=== PATIENT | male | born 1940 | race African-American/Black ===

== ENCOUNTER 2016-08-18 10:03 | Emergency (ER) | payer OTHER ==
[~2016-08-18 10:03] MED LIST: Sodium Chloride 0.9% 1,000 ML BAG ONE
[2016-08-18 10:53] LABS: Bilirubin Negative (Negative); Blood, Urine Negative (Negative); Clarity Clear (Clear); Glucose, Urine (Dipstick) Negative (Negative); Leukocyte Negative (Negative); Nitrite Negative (Negative); Protein, Urine (Dipstick) Negative (Neg-Trace); Urobilinogen 0.2 mg/dL (0.2-1.0); pH, Urine 5.5 (5.0-9.0)
--- NOTE | 2016-08-18 11:04 | RAD ---
SINGLE VIEW OF THE CHEST: Comparison: 09-07-15 History: Chest pain. FINDINGS: Single view of the chest shows normal sized cardiomediastinal silhouette with atherosclerotic calcif ications in the aorta. There is no evidence of consolidation, mass, or pleural effusions. The bone s are unremarkable. IMPRESSION: 1. No evidence of acute cardiopulmonary disease. 2. Atherosclerotic disease. POS: [facility]
[2016-08-18 11:07] LABS: Bacteria/HPF Rare-Few HPF (None Seen); Other Microscopic Description C&S SET UP; RBC/HPF None Seen HPF (0-3); Squamous Epithelial 0-3 HPF (0-3); WBC/HPF None Seen HPF (0-3)
[2016-08-18 11:13] LABS: Anisocytosis SLIGHT = 6-15 cells (100X) (0-5/hpf); Elliptocytes SLIGHT = 2-5 cells (100X) (0-1/hpf); Eosinophils 2 % (0-10); Hemoglobin 14.9 g/dL (14.0-18.0); Lymphocytes 33 % (21-51); MDiff Complete? YES; Mean Corpuscular HGB CONC 31.1 g/dL (32.0-36.0); Mean Corpuscular Hemoglobin 26.2 pg (27.0-31.0); Mean Corpuscular Volume 84.1 fl (80.0-94.0); Mean Platelet Volume 6.7 fL (7.4-10.4); Monocytes 6 % (0-10); Neutrophil 59 % (42-75); Platelet Count 230 thou/uL (130-400); Poikilocytosis SLIGHT = 6-15 cells (100X) (0-5/hpf); RBC Distribution Width 14.7 % (11.5-14.5); Tear Drops SLIGHT = 2-5 cells (100X) (0-1/hpf); White Blood Cell (WBC) Count 5.3 thou/uL (4.8-10.8)
[2016-08-18 11:28] LABS: CRP (Inflammatory) Less than 0.50 mg/dL (= or < 0.5); Lipase 29 U/L (8-78)
[2016-08-18 11:35] LABS: ALT (SGPT) 13 U/L (0-55); AST (SGOT) 13 U/L (5-34); Albumin 3.9 g/dL (3.4-4.8); Alkaline Phosphatase 78 U/L (40-150); Anion Gap 12 mmol/L (10-20); BUN (Urea Nitrogen) 12 mg/dL (8.4-25.7); Bilirubin, Total 0.6 mg/dL (0.2-1.2); Calc. Creatinine Clearance 0 mL/min (70-130); Calcium 9.3 mg/dL (7.8-10.44); Carbon Dioxide 23 mmol/L (23-31); Chloride 108 mmol/L (98-107); Estimated GFR-MDRD 86; Globulin 2.8 g/dL (2.4-3.5); Glucose 115 mg/dL (83-110); Potassium 4.4 mmol/L (3.5-5.1); Protein, Total 6.7 g/dL (5.8-8.1); Sodium 139 mmol/L (136-145)
[2016-08-18 11:55] LABS: Amylase 125 U/L (20-160)
--- NOTE | 2016-08-18 13:48 | CT ---
CT OF THE ABDOMEN AND PELVIS WITHOUT CONTRAST: Date: 08/18/16 COMPARISON: None. HISTORY: Mid abdominal pain for 2 weeks with diarrhea. TECHNIQUE: Multiple contiguous axial images were obtained in a CT of the abdomen and pelvis without contrast. P O contrast was administered. Coronal reformats were performed. FINDINGS: There is a 3.2 cm hypodensity in the right kidney, most likely representing a cyst. There is a punct ate 1.0 mm nonobstructing calcification in the right kidney. No left renal abnormality is seen. The liver, gallbladder, adrenal glands, spleen, and pancreas are unremarkable, although evaluation is li mited without IV contrast. No free air, free fluid, or stranding changes are seen in the abdomen or pelvis. The large and small bowel are unremarkable. The appendix is not visualized. Atherosclerotic calcifications are seen in the aorta. No abdominal or pelvic lymphadenopathy seen. Degenerative changes are seen in the spine. The visualized inferior thorax and abdominal wall soft t issues are unremarkable. IMPRESSION: 1. Nonobstructing right renal calcification. 2. Right renal cyst. POS: [facility]
[2016-08-18] MEDS ORDERED: Ciprofloxacin 500 MG TAB ONE (14:40)
[2016-08-18] MEDS ORDERED: Naproxen 500 MG TAB ONE (14:40)
== END 2016-08-18 15:07 | disposition home or self-care (01) ==
LOC: MADERS 10:03
DX: K52.9 Noninfective gastroenteritis and colitis, unspecified (principal); E11.9 Type 2 diabetes mellitus without complications; I10 Essential (primary) hypertension; E78.00 Pure hypercholesterolemia, unspecified; Z79.82 Long term (current) use of aspirin; Z79.84 Long term (current) use of oral hypoglycemic drugs; Z79.899 Other long term (current) drug therapy
CPT/HCPCS: 36415; 71010; 74176; 80053; 81003; 81015; 82150; 82274; 83605; 83630; 83690; 83880; 85025; 86140; 87015; 87040; 87045; 87046; 87086; 87324; 87328; 87329; 87449; 87899; 96360; J7050

== ENCOUNTER 2016-08-26 09:57 | Emergency (ER) | payer OTHER, SELFPAY ==
[2016-08-26] MEDS ORDERED: Diphenoxylate HCl/Atropine Tablet ONE (12:02)
== END 2016-08-26 12:07 | disposition home or self-care (01) ==
LOC: MADERS 09:57
DX: K52.9 Noninfective gastroenteritis and colitis, unspecified (principal); E11.9 Type 2 diabetes mellitus without complications; I10 Essential (primary) hypertension; E78.00 Pure hypercholesterolemia, unspecified; Z79.82 Long term (current) use of aspirin; Z79.899 Other long term (current) drug therapy; Z79.2 Long term (current) use of antibiotics
CPT/HCPCS: 99283

== ENCOUNTER 2016-11-29 12:36 | Emergency (ER) | payer SELFPAY ==
[2016-11-29 13:17] LABS: #Basophils 0.1 thou/uL (0.0-0.2); #Eosinphils 0.2 thou/uL (0.0-0.7); #Lymphocytes 2.3 thou/uL (1.20-3.40); #Monocytes 0.6 thou/uL (0.11-0.59); #Neutrophils 3.7 thou/uL (1.40-6.50); %Basophils 1.3 % (0.0-1.0); %Eosinophils 2.7 % (0.0-10.0); %Lymphocytes 34.1 % (21.0-51.0); %Monocytes 8.6 % (0.0-10.0); %Neutrophils 53.3 % (42.0-75.0); Hemoglobin 14.4 g/dL (14.0-18.0); Mean Corpuscular HGB CONC 30.6 g/dL (32.0-36.0); Mean Corpuscular Hemoglobin 26.4 pg (27.0-31.0); Mean Corpuscular Volume 86.3 fl (80.0-94.0); Mean Platelet Volume 7.1 fL (7.4-10.4); Platelet Count 258 thou/uL (130-400); Red Blood Cell (RBC) Count 5.45 mill/uL (4.70-6.10); White Blood Cell (WBC) Count 6.9 thou/uL (4.8-10.8)
[2016-11-29 13:36] LABS: ALT (SGPT) 26 U/L (8-55); AST (SGOT) 15 U/L (5-34); Albumin 4.3 g/dL (3.4-4.8); Alkaline Phosphatase 84 U/L (40-150); Anion Gap 19 mmol/L (10-20); BUN (Urea Nitrogen) 17 mg/dL (8.4-25.7); Bilirubin, Total 0.6 mg/dL (0.2-1.2); Calc. Creatinine Clearance 0 mL/min (70-130); Carbon Dioxide 22 mmol/L (23-31); Chloride 106 mmol/L (98-107); Estimated GFR-MDRD 64; Globulin 3.6 g/dL (2.4-3.5); Glucose 82 mg/dL (83-110); Potassium 3.7 mmol/L (3.5-5.1); Protein, Total 7.9 g/dL (5.8-8.1); Sodium 143 mmol/L (136-145)
[2016-11-29 13:40] LABS: Clarity c (Clear); Leukocyte Negative (Negative); Nitrite Negative (Negative); Protein, Urine (Dipstick) Negative (Neg-Trace); pH, Urine 5.5 (5.0-9.0)
[2016-11-29 13:41] LABS: Bacteria/HPF Rare-Few HPF (None Seen); Bilirubin Negative (Negative); Blood, Urine Negative (Negative); Glucose, Urine (Dipstick) Negative (Negative); RBC/HPF 0-3 HPF (0-3); Squamous Epithelial 0-3 HPF (0-3); Urobilinogen 0.2 mg/dL (0.2-1.0); WBC/HPF 0-3 HPF (0-3)
[2016-11-29] MEDS ORDERED: Naproxen 500 MG TAB ONE (13:51)
[2016-11-29 14:07] LABS: Acetaminophen Less than 6.0 mcg/mL (10.0-30.0); Alcohol Less than 10 mg/dL (Less than 10); Salicylate Less than 8.0 mg/dL (15.0-30.0)
[2016-11-29 14:29] LABS: Amphetamine Not Detected (NotDetected); Barbiturates Screen Not Detected (NotDetected); Benzodiazepine Screen Not Detected (NotDetected); Cocaine Metabolite Screen Not Detected (NotDetected); Medtox Control Line Valid? VALID (VALID); Methadone Not Detected (NotDetected); Methamphetamine Not Detected (NotDetected); Opiate Screen Not Detected (NotDetected); Oxycodone Screen Not Detected (NotDetected); Phencyclidine (PCP) Not Detected (NotDetected); THC/Cannabinoid Screen Not Detected (NotDetected); Tricyclic Screen Not Detected (NotDetected)
== END 2016-11-29 15:16 | disposition home or self-care (01) ==
LOC: MADERS 12:36
DX: R51 Headache (principal); N40.0 Benign prostatic hyperplasia without lower urinary tract symptoms; E11.9 Type 2 diabetes mellitus without complications; E78.00 Pure hypercholesterolemia, unspecified; I10 Essential (primary) hypertension; Z79.82 Long term (current) use of aspirin; Z79.84 Long term (current) use of oral hypoglycemic drugs; Z79.899 Other long term (current) drug therapy
CPT/HCPCS: 36415; 80053; 80306; 80307; 81001; 84443; 85025; 87086; 99284

== ENCOUNTER 2017-02-04 20:40 | Emergency (ER) | payer SELFPAY ==
[2017-02-04] MEDS ORDERED: Ondansetron ODT 4 MG TAB ONE (21:29)
[2017-02-04] MEDS ORDERED: cloNIDine HCl 0.1 MG TAB ONE (21:29)
[2017-02-04 21:44] LABS: Clarity Hazy (Clear); Glucose, Urine (Dipstick) Negative (Negative); Leukocyte Negative (Negative); Nitrite Negative (Negative); Protein, Urine (Dipstick) 30 mg/dL (Neg-Trace); Specific Gravity, Urine 1.028 (1.002-1.036); Urobilinogen 0.2 mg/dL (0.2-1.0); pH, Urine 5.5 (5.0-9.0)
[2017-02-04 21:45] LABS: Bilirubin Small (Negative); Blood, Urine Negative (Negative); Icto Negative (Negative); RBC/HPF None Seen HPF (0-3); Squamous Epithelial 0-3 HPF (0-3); WBC/HPF None Seen HPF (0-3)
[2017-02-04 21:46] LABS: Crystals/HPF 3+ URIC ACID HPF (Negative)
[2017-02-04 21:51] LABS: #Basophils 0.1 thou/uL (0.0-0.2); #Eosinphils 0.1 thou/uL (0.0-0.7); #Lymphocytes 1.5 thou/uL (1.20-3.40); #Monocytes 0.5 thou/uL (0.11-0.59); #Neutrophils 4.4 thou/uL (1.40-6.50); %Basophils 1.1 % (0.0-1.0); %Eosinophils 1.4 % (0.0-10.0); %Lymphocytes 23.1 % (21.0-51.0); %Monocytes 7.9 % (0.0-10.0); %Neutrophils 66.6 % (42.0-75.0); Hemoglobin 13.9 g/dL (14.0-18.0); Mean Corpuscular HGB CONC 32.1 g/dL (32.0-36.0); Mean Corpuscular Volume 84.1 fl (80.0-94.0); Mean Platelet Volume 6.7 fL (7.4-10.4); Platelet Count 247 thou/uL (130-400); RBC Distribution Width 13.2 % (11.5-14.5); Red Blood Cell (RBC) Count 5.16 mill/uL (4.70-6.10); White Blood Cell (WBC) Count 6.5 thou/uL (4.8-10.8)
--- NOTE | 2017-02-04 22:00 | RAD ---
TWO VIEWS OF THE ABDOMEN AND UPRIGHT VIEW OF THE CHEST 02/04/17 HISTORY: Abdominal pain FINDINGS: Supine and upright views of the abdomen and upright view of the chest shows a nonspecific, nonobstru cted bowel gas pattern. No free air or air fluid levels are seen on upright examination. Air is seen in the rectum. The cardiomediastinal silhouette is normal in size. There is no evidence of consolidation, mass or p leural effusion. IMPRESSION: Unremarkable exam. POS: [facility]
--- NOTE | 2017-02-04 22:08 | CT ---
CT OF THE BRAIN WITHOUT CONTRAST 02/04/17 COMPARISON: 09/02/15 HISTORY: Altered mental status. Abdominal pain. TECHNIQUE: Multiple contiguous axial images were obtained in a CT of the brain without contrast. FINDINGS: There is scattered hypodensities in the subcortical and periventricular white matter, likely seconda ry to small vessel ischemic disease. No large confluent infarction is seen. There is no evidence of hydrocephalus, intracranial hemorrhage or extra-axial fluid collection. The calvarium and overlying soft tissues are unremarkable. The visualized paranasal sinuses and mast oid air cells are well aerated. IMPRESSION: No evidence of acute intracranial abnormality. POS: [facility]
[2017-02-04 22:13] LABS: CKMB 2.9 ng/mL (0-6.6); Troponin I 0.012 ng/mL (< 0.028)
[2017-02-04 22:17] LABS: ALT (SGPT) 42 U/L (8-55); AST (SGOT) 29 U/L (5-34); Albumin 3.9 g/dL (3.4-4.8); Alkaline Phosphatase 72 U/L (40-150); Anion Gap 15 mmol/L (10-20); BUN (Urea Nitrogen) 17 mg/dL (8.4-25.7); Bilirubin, Total 0.4 mg/dL (0.2-1.2); Calc. Creatinine Clearance 0 mL/min (70-130); Calcium 9.2 mg/dL (7.8-10.44); Carbon Dioxide 23 mmol/L (23-31); Chloride 107 mmol/L (98-107); Estimated GFR-MDRD 66; Glucose 107 mg/dL (83-110); Potassium 3.6 mmol/L (3.5-5.1); Protein, Total 6.9 g/dL (5.8-8.1); Sodium 141 mmol/L (136-145)
== END 2017-02-04 22:49 | disposition home or self-care (01) ==
LOC: MADERS 20:40
DX: E86.9 Volume depletion, unspecified (principal); I10 Essential (primary) hypertension; E11.9 Type 2 diabetes mellitus without complications; E78.00 Pure hypercholesterolemia, unspecified; Z79.84 Long term (current) use of oral hypoglycemic drugs; Z79.899 Other long term (current) drug therapy; Z79.82 Long term (current) use of aspirin; Z87.891 Personal history of nicotine dependence
CPT/HCPCS: 70450; 74022; 80053; 81003; 81015; 82553; 84484; 85025; 96360; J7050; Q0162

== ENCOUNTER 2017-03-04 23:32 | Emergency (ER) | payer MEDICARE, SELFPAY ==
[2017-03-05 00:05] LABS: #Basophils 0.2 thou/uL (0.0-0.2); #Lymphocytes 1.2 thou/uL (1.20-3.40); #Monocytes 1.2 thou/uL (0.11-0.59); #Neutrophils 9.2 thou/uL (1.40-6.50); %Basophils 1.3 % (0.0-1.0); %Lymphocytes 10.2 % (21.0-51.0); %Monocytes 10.3 % (0.0-10.0); %Neutrophils 78.2 % (42.0-75.0); Hemoglobin 13.8 g/dL (14.0-18.0); Mean Corpuscular HGB CONC 31.7 g/dL (32.0-36.0); Mean Corpuscular Hemoglobin 26.5 pg (27.0-31.0); Mean Corpuscular Volume 83.6 fl (80.0-94.0); Mean Platelet Volume 6.7 fL (7.4-10.4); Platelet Count 251 thou/uL (130-400); RBC Distribution Width 13.7 % (11.5-14.5); Red Blood Cell (RBC) Count 5.18 mill/uL (4.70-6.10); White Blood Cell (WBC) Count 11.7 thou/uL (4.8-10.8)
[2017-03-05 00:17] LABS: INR-International Normal Ratio 1.1
[2017-03-05 00:28] LABS: ALT (SGPT) 19 U/L (8-55); AST (SGOT) 13 U/L (5-34); Albumin 3.8 g/dL (3.4-4.8); Alkaline Phosphatase 62 U/L (40-150); Anion Gap 16 mmol/L (10-20); BUN (Urea Nitrogen) 19 mg/dL (8.4-25.7); Bilirubin, Total 0.9 mg/dL (0.2-1.2); Calc. Creatinine Clearance 0 mL/min (70-130); Calcium 9.6 mg/dL (7.8-10.44); Carbon Dioxide 25 mmol/L (23-31); Chloride 103 mmol/L (98-107); Estimated GFR-MDRD 58; Globulin 3.4 g/dL (2.4-3.5); Glucose 153 mg/dL (83-110); Potassium 3.5 mmol/L (3.5-5.1); Protein, Total 7.2 g/dL (5.8-8.1); Sodium 140 mmol/L (136-145)
[2017-03-05 00:29] LABS: CKMB 1.4 ng/mL (0-6.6); Troponin I 0.051 ng/mL (< 0.028)
[2017-03-05 00:33] LABS: Acetaminophen Less than 6.0 mcg/mL (10.0-30.0); Alcohol Less than 10 mg/dL (Less than 10); CK (CPK) 155 U/L (30-200); Magnesium 1.7 mg/dL (1.6-2.6); Salicylate Less than 8.0 mg/dL (15.0-30.0)
[2017-03-05 00:38] LABS: Hemoglobin A1c 6.2 % (4.0-6.0)
[2017-03-05 01:20] LABS: Clarity Clear (Clear)
[2017-03-05 01:21] LABS: Bilirubin Negative (Negative); Blood, Urine Negative (Negative); Glucose, Urine (Dipstick) Negative (Negative); Leukocyte Negative (Negative); Nitrite Negative (Negative); Protein, Urine (Dipstick) Negative (Neg-Trace); RBC/HPF None Seen HPF (0-3); Renal Epithelial None Seen HPF (0-3); Squamous Epithelial 0-3 HPF (0-3); Urobilinogen 0.2 mg/dL (0.2-1.0); WBC/HPF None Seen HPF (0-3)
[2017-03-05 01:26] LABS: Amphetamine Not Detected (NotDetected); Barbiturates Screen Not Detected (NotDetected); Benzodiazepine Screen Not Detected (NotDetected); Cocaine Metabolite Screen Not Detected (NotDetected); Medtox Control Line Valid? VALID (VALID); Methadone Not Detected (NotDetected); Methamphetamine Not Detected (NotDetected); Opiate Screen Not Detected (NotDetected); Oxycodone Screen Not Detected (NotDetected); Phencyclidine (PCP) Not Detected (NotDetected); THC/Cannabinoid Screen Not Detected (NotDetected); Tricyclic Screen Not Detected (NotDetected)
[2017-03-05] MEDS ORDERED: Aspirin 325 MG TAB ONE (01:59)
--- NOTE | 2017-03-05 08:49 | CT ---
PRELIMINARY REPORT/[facility]/EMERGENCY AFTER HOURS PROCEDURE: EXAM: CT Head Without Intravenous Contrast CLINICAL HISTORY: 77 years old, male; Signs and symptoms; Altered mental status/memory loss TECHNIQUE: Axial computed tomography images of the head/brain without intravenous contrast. COMPARISON: No relevant prior studies available. FINDINGS: Brain: Mild volume loss No hemorrhage. Moderate white matter disease. No edema. Ventricles: Unremarkable. No ventriculomegaly. Bones/joints: Unremarkable. No acute fracture. Soft tissues: Unremarkable. Sinuses: Unremarkable as visualized. No acute sinusitis. Mastoid air cells: Unremarkable as visualized. No mastoid effusion. IMPRESSION: No intracranial hemorrhage.Please see discussion above. Thank you for allowing us to participate in the care of your patient. Dictated and Authenticated by: Jett Qauch MD 03/05/2017 12:47 AM Central Time ([place] \T\ [place]) FINAL REPORT EMERGENCY AFTER HOURS STUDY CT BRAIN NONCONTRAST: HISTORY: 77-year-old male with generalized weakness and altered mental status. FINDINGS: There is no midline shift or any other mass effect. There is no evidence of acute intracranial hemo rrhage, large cortical infarct, obstructive hydrocephalus, or extraaxial fluid collection. The calv arium is intact. There is diffuse parenchymal volume loss. There are low attenuation areas in the white matter. These are nonspecific, but in a patient of this age, they are probably chronic ischem ic white matter changes due to microvascular atherosclerosis. There is no interval change since 02/16/17. This report agrees with the preliminary report by N[facility]. IMPRESSION: 1. No acute intracranial findings. 2. Involutional changes and chronic ischemic white matter changes. estela [] POS: [facility]
--- NOTE | 2017-03-05 08:57 | RAD ---
RADIOGRAPH CHEST 1 VIEW: HISTORY: 77-year-old male with altered mental status. FINDINGS: The thoracic aorta is tortuous and ectatic. There is no evidence of air space density, pneumothorax , or pulmonary edema. The lateral costophrenic angles are sharp. IMPRESSION: 1. No acute pulmonary findings. 2. Ectasia of thoracic aorta. estela [] POS: [facility]
== END 2017-03-05 02:21 | disposition short-term general hospital (02) ==
LOC: MADERS 23:32
DX: G30.9 Alzheimer's disease, unspecified (principal); F02.80 Dementia in other diseases classified elsewhere, unspecified severity, without behavioral disturbance, psychotic disturbance, mood disturbance, and anxiety; R79.89 Other specified abnormal findings of blood chemistry; E11.9 Type 2 diabetes mellitus without complications; E78.00 Pure hypercholesterolemia, unspecified; I10 Essential (primary) hypertension; F41.9 Anxiety disorder, unspecified; Z87.891 Personal history of nicotine dependence; Z79.899 Other long term (current) drug therapy; Z79.84 Long term (current) use of oral hypoglycemic drugs; Z79.82 Long term (current) use of aspirin
CPT/HCPCS: 36415; 51701; 70450; 71010; 80053; 80306; 80307; 81001; 82553; 83036; 83735; 83880; 84484; 85025; 85610; 85730; 86140; 87086; 93005

== ENCOUNTER 2017-03-08 16:46 | Inpatient (IN) | payer MEDICARE ==
[2017-03-08] MEDS ORDERED: FLU VACC TS2017-18 (>65YR) 0.5 ML SYRINGE IM ONE (18:00)
[2017-03-08] MEDS ORDERED: Ondansetron ODT 4 MG TAB PO PRN (18:00)
[2017-03-08] MEDS: Acetaminophen 325 MG TAB PO PRN (21:10)
[2017-03-08] MEDS: Colchicine 0.6 MG TAB PO SCH (21:10)
[2017-03-08] MEDS: Mirtazapine 15 MG TAB PO SCH (21:10)
[2017-03-08] MEDS: Indomethacin 25 mg Capsule PO SCH (21:11)
[2017-03-08] MEDS: Docusate 100 MG CAP PO SCH (21:11)
--- NOTE | 2017-03-09 06:19 | HP ---
PRIMARY CARE PHYSICIAN AND ADMITTING PHYSICIAN: Jenni Yuan M.D. REASON FOR ADMISSION: For swing bed skilled rehabilitation at [facility], status post altered mental status back at baseline and physical deconditioning. HISTORY OF PRESENT ILLNESS: Mr. Arriaga is a 77-year-old -[place] male who was transferred from [facility] in [place] to [facility] after his admission from 03/05-03/08. The patient was admitted initially due to altered mental status, generalized weakness and elevated troponins. The patient has a history of mild dementia and lives with his 17-year-old son in his home. Dr. Reed electricians top helper was consulted and he recommended no invasive intervention unless patient symptomatic with EKG changes. During hospitalization in [place], the patient was noted to have some form of sepsis, he had leukocytosis with elevated CRP, but that was ruled out. He had negative blood cultures and negative urine culture. The patient did have swelling and pain to his right knee and synovial fluid in his knee was present for urate crystals. The patient was subsequently diagnosed with acute gout attack. He was started on colchicine and indomethacin and antibiotics were discontinued as he was found not to be septic. The patient's mental status returned somewhat to baseline with waxing and waning episodes, but due to his advancing dementia, it was discussed with family and patient will likely need a long-term placement. After discussion with family, the decision was made to transfer the patient to [facility] swing bed for skilled rehabilitation before his discharge to a long-term facility or back to home. Upon evaluation of patient today, he was alert, awake and oriented x2. He was very weak to his extremities but kept attempting to get up on his own. He denies any pain in the knee, but complains of some swelling and weakness. The patient denies any fever, denies chest pain, shortness of breath, abdominal pain or dizziness. The patient was able to eat his own dinner by himself without any issues. PAST MEDICAL HISTORY: Type 2 diabetes, hypertension, hyperlipidemia, dementia and benign prostatic hypertrophy. PAST SURGICAL HISTORY: Prostatectomy and TURP procedure. ALLERGIES: IODINE. MEDICATIONS: Aspirin 81 mg, omeprazole 20 daily, hydrochlorothiazide 25 daily, mirtazapine 30 mg at bedtime, potassium chloride 20 daily, amlodipine 10 daily, atorvastatin 40 daily, metoprolol 50 b.i.d., metformin 500 daily, glyburide 1 daily, prazosin 1 mg at bedtime and clonidine q.8 hours p.r.n. SOCIAL HISTORY: History of tobacco abuse over 10 years ago. Denies illicit drug use or alcohol use. REVIEW OF SYSTEMS: Constitutional: Denies fever, chills or weight loss. Eyes : Denies vision changes or eye pain. Respiratory: Denies cough or congestion. Cardiovascular: Denies shortness of breath, palpitation or chest pain. Gastrointestinal: Denies nausea, vomiting, diarrhea or constipation. Genitourinary: Denies incontinence, dysuria or hematuria. Skin: Denies any skin rashes or lesions. Musculoskeletal: Complains of occasional pain to the right knee and weakness. Neurological: Complains of weakness. Denies numbness. Psychiatry: Denies hallucination, delusion or anxiety. PHYSICAL EXAMINATION: VITAL SIGNS: Temperature 98.0, pulse 68, respirations 20 and blood pressure 161 /77. GENERAL: Alert, awake, oriented x2, in no apparent distress, thin, sitting up in bed and interactive. HEENT: Normocephalic and atraumatic. PERRL. Anicteric sclerae. Oral mucous membranes are moist. NECK: Supple. No lymphadenopathy or thyromegaly. CARDIOVASCULAR: Regular rate and rhythm. No murmurs, rubs or gallops. RESPIRATORY: Clear to auscultation bilaterally. No wheezing, no crackles. SKIN: Warm and dry. ABDOMEN: Positive bowel sounds in all four quadrants. Soft and nontender to palpation. No masses, no distention. EXTREMITIES: No clubbing or cyanosis. MUSCULOSKELETAL: Right knee mildly swollen, nontender and nonerythematous. NEUROLOGIC: No focal deficits. PSYCHIATRIC: Some form of confusion. ASSESSMENT: 1. Physical deconditioning. 2. Gait instability. 3. Advancing dementia. 4. Hypertension. 5. Type 2 diabetes. 6. Benign prostatic hypertrophy. 7. Hyperlipidemia. 8. Acute gout attack. 9. Acute on chronic kidney injury. 10. Benign prostatic hypertrophy. 11. Elevated troponins. PLAN: The patient is to be admitted to [facility] swing bed for skilled rehabilitation and gait strengthening. We will consult Physical Therapy for strengthening in order to gain modified independence with gait and Occupational Therapy to help with activities of daily living prior to returning either to his home or a long-term facility. We will consult Speech Therapy to help with his speech. We will consult Case Management for long-term placement. We will resume patient's home medications. We will continue his acute gout medications. We will place him on Colace b.i.d. for constipation. We will monitor the patient for any medical comorbidities that may interfere with his rehabilitation process. We will place patient on omeprazole for gastrointestinal prophylaxis and ANGE hose for deep venous thrombosis prophylaxis. ESTIMATED LENGTH OF STAY: 3-4 weeks. MTDD
[2017-03-09] MEDS: Atorvastatin Calcium 10 MG TAB PO SCH (08:24)
[2017-03-09] MEDS: glyBURIDE 5 MG TAB PO SCH (08:24)
[2017-03-09] MEDS: Aspirin 81 mg Enteric Coated Tablet PO SCH (08:24)
[2017-03-09] MEDS: metFORMIN 500 MG TAB PO SCH (08:25)
[2017-03-09] MEDS: Colchicine 0.6 MG TAB PO SCH ×2 (08:25→20:54)
[2017-03-09] MEDS: Docusate 100 MG CAP PO SCH ×2 (08:25→20:54)
[2017-03-09] MEDS: Indomethacin 25 mg Capsule PO SCH ×3 (08:25→20:55)
[2017-03-09] MEDS: Hydrochlorothiazide 25 MG TAB PO SCH (08:25)
[2017-03-09] MEDS: Potassium Chloride 20 MEQ TAB PO SCH (08:26)
[2017-03-09] MEDS: Prazosin HCl 1 MG CAP PO SCH (08:26)
[2017-03-09] MEDS ORDERED: Polyethylene Glycol 3350 17 GM Packet PO PRN (14:03)
[2017-03-09] MEDS: Mirtazapine 15 MG TAB PO SCH (20:56)
[2017-03-09] MEDS: Acetaminophen 325 MG TAB PO PRN (23:57)
[2017-03-10] MEDS: Potassium Chloride 20 MEQ TAB PO SCH (08:36)
[2017-03-10] MEDS: Prazosin HCl 1 MG CAP PO SCH (08:36)
[2017-03-10] MEDS: Colchicine 0.6 MG TAB PO SCH (08:36)
[2017-03-10] MEDS: metFORMIN 500 MG TAB PO SCH (08:36)
[2017-03-10] MEDS: Indomethacin 25 mg Capsule PO SCH ×3 (08:36→20:18)
[2017-03-10] MEDS: Hydrochlorothiazide 25 MG TAB PO SCH (08:37)
[2017-03-10] MEDS: Atorvastatin Calcium 10 MG TAB PO SCH (08:37)
[2017-03-10] MEDS: glyBURIDE 5 MG TAB PO SCH (08:37)
[2017-03-10] MEDS: Aspirin 81 mg Enteric Coated Tablet PO SCH (08:37)
[2017-03-10] MEDS: Docusate 100 MG CAP PO SCH (08:37)
[2017-03-10] MEDS ORDERED: Loperamide HCl 2 MG CAP PO PRN (09:30)
[2017-03-10] MEDS: Mirtazapine 15 MG TAB PO SCH (20:19)
[2017-03-11] MEDS: glyBURIDE 5 MG TAB PO SCH (08:32)
[2017-03-11] MEDS: Aspirin 81 mg Enteric Coated Tablet PO SCH (08:32)
[2017-03-11] MEDS: Atorvastatin Calcium 10 MG TAB PO SCH (08:33)
[2017-03-11] MEDS: Hydrochlorothiazide 25 MG TAB PO SCH (08:33)
[2017-03-11] MEDS: metFORMIN 500 MG TAB PO SCH (08:33)
[2017-03-11] MEDS: Indomethacin 25 mg Capsule PO SCH ×3 (08:33→20:06)
[2017-03-11] MEDS: Prazosin HCl 1 MG CAP PO SCH (08:34)
[2017-03-11] MEDS: Potassium Chloride 20 MEQ TAB PO SCH (08:34)
[2017-03-11] MEDS: Pantoprazole 40 MG GRANULES PACKET PO SCH (14:39)
[2017-03-11] MEDS: Acetaminophen 325 MG TAB PO PRN ×2 (19:10→23:54)
[2017-03-11] MEDS: Mirtazapine 15 MG TAB PO SCH (20:07)
[2017-03-12] MEDS: Indomethacin 25 mg Capsule PO SCH ×3 (08:07→20:25)
[2017-03-12] MEDS: glyBURIDE 5 MG TAB PO SCH (08:08)
[2017-03-12] MEDS: Potassium Chloride 20 MEQ TAB PO SCH (08:08)
[2017-03-12] MEDS: metFORMIN 500 MG TAB PO SCH (08:08)
[2017-03-12] MEDS: Prazosin HCl 1 MG CAP PO SCH (08:08)
[2017-03-12] MEDS: Hydrochlorothiazide 25 MG TAB PO SCH (08:08)
[2017-03-12] MEDS: Aspirin 81 mg Enteric Coated Tablet PO SCH (08:08)
[2017-03-12] MEDS: Atorvastatin Calcium 10 MG TAB PO SCH (08:08)
[2017-03-12] MEDS: Pantoprazole 40 MG GRANULES PACKET PO SCH (08:09)
[2017-03-12] MEDS: Mirtazapine 15 MG TAB PO SCH (20:26)
[2017-03-13] MEDS: Aspirin 81 mg Enteric Coated Tablet PO SCH (08:31)
[2017-03-13] MEDS: Hydrochlorothiazide 25 MG TAB PO SCH (08:31)
[2017-03-13] MEDS: Colchicine 0.6 MG TAB PO SCH ×2 (08:31→14:20)
[2017-03-13] MEDS: glyBURIDE 5 MG TAB PO SCH (08:31)
[2017-03-13] MEDS: Atorvastatin Calcium 10 MG TAB PO SCH (08:31)
[2017-03-13] MEDS: Potassium Chloride 20 MEQ TAB PO SCH (08:32)
[2017-03-13] MEDS: Prazosin HCl 1 MG CAP PO SCH (08:32)
[2017-03-13] MEDS: metFORMIN 500 MG TAB PO SCH (08:32)
[2017-03-13] MEDS: Indomethacin 25 mg Capsule PO SCH ×3 (08:32→21:02)
[2017-03-13] MEDS: Pantoprazole 40 MG GRANULES PACKET PO SCH (08:32)
[2017-03-13] MEDS: Lisinopril 10 MG TAB PO SCH (14:22)
[2017-03-13] MEDS: Mirtazapine 15 MG TAB PO SCH (21:03)
[2017-03-13] MEDS ORDERED: clonazePAM 0.5 MG TAB PO SCH (22:45)
[2017-03-14] MEDS: glyBURIDE 5 MG TAB PO SCH (07:32)
[2017-03-14] MEDS: Pantoprazole 40 MG GRANULES PACKET PO SCH (08:29)
[2017-03-14] MEDS: Indomethacin 25 mg Capsule PO SCH ×2 (08:29→21:15)
[2017-03-14] MEDS: Lisinopril 10 MG TAB PO SCH (08:29)
[2017-03-14] MEDS: Aspirin 81 mg Enteric Coated Tablet PO SCH (08:29)
[2017-03-14] MEDS: Potassium Chloride 20 MEQ TAB PO SCH (08:30)
[2017-03-14] MEDS: Hydrochlorothiazide 25 MG TAB PO SCH (08:30)
[2017-03-14] MEDS: Prazosin HCl 1 MG CAP PO SCH (08:30)
[2017-03-14] MEDS: metFORMIN 500 MG TAB PO SCH (08:30)
[2017-03-14] MEDS: Colchicine 0.6 MG TAB PO SCH (08:30)
[2017-03-14] MEDS: Atorvastatin Calcium 10 MG TAB PO SCH (08:31)
[2017-03-14] MEDS: Mirtazapine 15 MG TAB PO SCH (21:14)
[2017-03-15] MEDS: glyBURIDE 5 MG TAB PO SCH (07:58)
[2017-03-15] MEDS: Indomethacin 25 mg Capsule PO SCH ×2 (08:57→20:13)
[2017-03-15] MEDS: Atorvastatin Calcium 10 MG TAB PO SCH (08:57)
[2017-03-15] MEDS: Hydrochlorothiazide 25 MG TAB PO SCH (08:58)
[2017-03-15] MEDS: Lisinopril 10 MG TAB PO SCH (08:58)
[2017-03-15] MEDS: Prazosin HCl 1 MG CAP PO SCH (08:58)
[2017-03-15] MEDS: Aspirin 81 mg Enteric Coated Tablet PO SCH (08:58)
[2017-03-15] MEDS: Potassium Chloride 20 MEQ TAB PO SCH (08:58)
[2017-03-15] MEDS: Pantoprazole 40 MG GRANULES PACKET PO SCH (08:59)
[2017-03-15] MEDS: metFORMIN 500 MG TAB PO SCH (08:59)
[2017-03-15] MEDS: Colchicine 0.6 MG TAB PO SCH (08:59)
[2017-03-15] MEDS: Mirtazapine 15 MG TAB PO SCH (20:13)
[2017-03-15] MEDS ORDERED: Dorzolamide HCl 2% Ophth Soln 10 ml Bottle L EYE SCH (21:00)
[2017-03-15] MEDS ORDERED: Dorzolamide HCl 2% Ophth Soln 10 ml Bottle R EYE SCH ×2 (21:00)
[2017-03-16] MEDS: Aspirin 81 mg Enteric Coated Tablet PO SCH (08:02)
[2017-03-16] MEDS: Atorvastatin Calcium 10 MG TAB PO SCH (08:02)
[2017-03-16] MEDS: glyBURIDE 5 MG TAB PO SCH (08:02)
[2017-03-16] MEDS: Prazosin HCl 1 MG CAP PO SCH (08:03)
[2017-03-16] MEDS: Lisinopril 10 MG TAB PO SCH (08:03)
[2017-03-16] MEDS: metFORMIN 500 MG TAB PO SCH (08:03)
[2017-03-16] MEDS: Hydrochlorothiazide 25 MG TAB PO SCH (08:03)
[2017-03-16] MEDS: Indomethacin 25 mg Capsule PO SCH ×2 (08:04→19:58)
[2017-03-16] MEDS: Potassium Chloride 20 MEQ TAB PO SCH (08:04)
[2017-03-16] MEDS: Colchicine 0.6 MG TAB PO SCH (08:04)
[2017-03-16] MEDS: Pantoprazole 40 MG GRANULES PACKET PO SCH (08:39)
[2017-03-16] MEDS: Dorzolamide HCl 2% Ophth Soln 10 ml Bottle EA EYE SCH ×2 (08:39→20:00)
[2017-03-16] MEDS: Mirtazapine 15 MG TAB PO SCH (19:59)
[2017-03-16] MEDS: clonazePAM 0.5 MG TAB PO PRN (20:00)
[2017-03-17] MEDS: glyBURIDE 5 MG TAB PO SCH (08:25)
[2017-03-17] MEDS: Aspirin 81 mg Enteric Coated Tablet PO SCH (08:26)
[2017-03-17] MEDS: Indomethacin 25 mg Capsule PO SCH ×2 (08:26→20:15)
[2017-03-17] MEDS: Hydrochlorothiazide 25 MG TAB PO SCH (08:26)
[2017-03-17] MEDS: Dorzolamide HCl 2% Ophth Soln 10 ml Bottle EA EYE SCH ×2 (08:26→20:14)
[2017-03-17] MEDS: Atorvastatin Calcium 10 MG TAB PO SCH (08:26)
[2017-03-17] MEDS: Colchicine 0.6 MG TAB PO SCH (08:26)
[2017-03-17] MEDS: metFORMIN 500 MG TAB PO SCH (08:27)
[2017-03-17] MEDS: Prazosin HCl 1 MG CAP PO SCH (08:27)
[2017-03-17] MEDS: Lisinopril 10 MG TAB PO SCH (08:27)
[2017-03-17] MEDS: Potassium Chloride 20 MEQ TAB PO SCH (08:27)
[2017-03-17] MEDS: Mirtazapine 15 MG TAB PO SCH (20:15)
[2017-03-18] MEDS: Aspirin 81 mg Enteric Coated Tablet PO SCH (08:01)
[2017-03-18] MEDS: glyBURIDE 5 MG TAB PO SCH (08:01)
[2017-03-18] MEDS: Atorvastatin Calcium 10 MG TAB PO SCH (08:02)
[2017-03-18] MEDS: metFORMIN 500 MG TAB PO SCH (08:03)
[2017-03-18] MEDS: Hydrochlorothiazide 25 MG TAB PO SCH (08:03)
[2017-03-18] MEDS: Indomethacin 25 mg Capsule PO SCH ×3 (08:03→19:44)
[2017-03-18] MEDS: Prazosin HCl 1 MG CAP PO SCH (08:03)
[2017-03-18] MEDS: Colchicine 0.6 MG TAB PO SCH (08:03)
[2017-03-18] MEDS: Potassium Chloride 20 MEQ TAB PO SCH (08:03)
[2017-03-18] MEDS: Lisinopril 10 MG TAB PO SCH (08:30)
[2017-03-18] MEDS: Dorzolamide HCl 2% Ophth Soln 10 ml Bottle EA EYE SCH ×2 (08:30→19:45)
[2017-03-18] MEDS: Mirtazapine 15 MG TAB PO SCH (19:42)
[2017-03-18] MEDS: clonazePAM 0.5 MG TAB PO PRN (19:43)
[2017-03-19] MEDS: Atorvastatin Calcium 10 MG TAB PO SCH (08:17)
[2017-03-19] MEDS: Hydrochlorothiazide 25 MG TAB PO SCH (08:17)
[2017-03-19] MEDS: Colchicine 0.6 MG TAB PO SCH (08:17)
[2017-03-19] MEDS: glyBURIDE 5 MG TAB PO SCH (08:17)
[2017-03-19] MEDS: Aspirin 81 mg Enteric Coated Tablet PO SCH (08:17)
[2017-03-19] MEDS: metFORMIN 500 MG TAB PO SCH (08:18)
[2017-03-19] MEDS: Lisinopril 10 MG TAB PO SCH (08:18)
[2017-03-19] MEDS: Prazosin HCl 1 MG CAP PO SCH (08:18)
[2017-03-19] MEDS: Potassium Chloride 20 MEQ TAB PO SCH (08:18)
[2017-03-19] MEDS: Dorzolamide HCl 2% Ophth Soln 10 ml Bottle EA EYE SCH ×2 (08:21→19:58)
[2017-03-19] MEDS ORDERED: Indomethacin 25 mg Capsule PO SCH (08:45)
[2017-03-19] MEDS ORDERED: Dextrose 5% in Water 1,000 ML IV PRN (11:42)
[2017-03-19] MEDS ORDERED: Dextrose 50% Abboject 50 ML SYRINGE SLOW IVP PRN (11:42)
[2017-03-19] MEDS: Indomethacin 25 mg Capsule PO SCH (19:59)
[2017-03-19] MEDS: Mirtazapine 15 MG TAB PO SCH (20:00)
[2017-03-19] MEDS: clonazePAM 0.5 MG TAB PO PRN (20:00)
[2017-03-20] MEDS: glyBURIDE 5 MG TAB PO SCH (08:02)
[2017-03-20] MEDS: Atorvastatin Calcium 10 MG TAB PO SCH (08:02)
[2017-03-20] MEDS: Indomethacin 25 mg Capsule PO SCH ×2 (08:03→20:21)
[2017-03-20] MEDS: Prazosin HCl 1 MG CAP PO SCH (08:03)
[2017-03-20] MEDS: Hydrochlorothiazide 25 MG TAB PO SCH (08:03)
[2017-03-20] MEDS: metFORMIN 500 MG TAB PO SCH (08:04)
[2017-03-20] MEDS: Potassium Chloride 20 MEQ TAB PO SCH (08:04)
[2017-03-20] MEDS: Aspirin 81 mg Enteric Coated Tablet PO SCH (08:04)
[2017-03-20] MEDS: Colchicine 0.6 MG TAB PO SCH (08:04)
[2017-03-20] MEDS: Dorzolamide HCl 2% Ophth Soln 10 ml Bottle EA EYE SCH ×2 (08:06→20:21)
[2017-03-20] MEDS: Lisinopril 10 MG TAB PO SCH (08:33)
[2017-03-20] MEDS: clonazePAM 0.5 MG TAB PO PRN (20:21)
[2017-03-20] MEDS: Mirtazapine 15 MG TAB PO SCH (20:21)
[2017-03-21] MEDS: Atorvastatin Calcium 10 MG TAB PO SCH (08:07)
[2017-03-21] MEDS: Aspirin 81 mg Enteric Coated Tablet PO SCH (08:07)
[2017-03-21] MEDS: glyBURIDE 5 MG TAB PO SCH (08:07)
[2017-03-21] MEDS: Lisinopril 10 MG TAB PO SCH (08:08)
[2017-03-21] MEDS: Indomethacin 25 mg Capsule PO SCH ×2 (08:08→21:10)
[2017-03-21] MEDS: Hydrochlorothiazide 25 MG TAB PO SCH (08:08)
[2017-03-21] MEDS: Colchicine 0.6 MG TAB PO SCH (08:08)
[2017-03-21] MEDS: Prazosin HCl 1 MG CAP PO SCH (08:09)
[2017-03-21] MEDS: metFORMIN 500 MG TAB PO SCH (08:09)
[2017-03-21] MEDS: Potassium Chloride 20 MEQ TAB PO SCH (08:09)
[2017-03-21] MEDS: Dorzolamide HCl 2% Ophth Soln 10 ml Bottle EA EYE SCH ×2 (08:44→21:11)
[2017-03-21] MEDS: clonazePAM 0.5 MG TAB PO PRN (21:10)
[2017-03-22] MEDS: glyBURIDE 5 MG TAB PO SCH (07:41)
[2017-03-22] MEDS: Lisinopril 10 MG TAB PO SCH ×2 (07:41→20:23)
[2017-03-22] MEDS: Hydrochlorothiazide 25 MG TAB PO SCH (07:41)
[2017-03-22] MEDS: Prazosin HCl 1 MG CAP PO SCH (08:52)
[2017-03-22] MEDS: Potassium Chloride 20 MEQ TAB PO SCH (08:52)
[2017-03-22] MEDS: Aspirin 81 mg Enteric Coated Tablet PO SCH (08:52)
[2017-03-22] MEDS: Indomethacin 25 mg Capsule PO SCH (08:52)
[2017-03-22] MEDS: Colchicine 0.6 MG TAB PO SCH (08:52)
[2017-03-22] MEDS: metFORMIN 500 MG TAB PO SCH (08:52)
[2017-03-22] MEDS: Atorvastatin Calcium 10 MG TAB PO SCH (08:52)
[2017-03-22] MEDS: Dorzolamide HCl 2% Ophth Soln 10 ml Bottle EA EYE SCH ×2 (08:53→20:24)
[2017-03-22] MEDS: clonazePAM 0.5 MG TAB PO PRN ×2 (15:06→20:22)
[2017-03-22] MEDS ORDERED: Indomethacin 25 mg Capsule PO SCH (18:00)
[2017-03-22 18:30] VITALS: BMI 25.4
[2017-03-22] MEDS: Mirtazapine 15 MG TAB PO SCH (20:23)
[2017-03-22] MEDS: Donepezil HCl 10 MG TAB PO SCH (20:24)
[2017-03-23] MEDS: glyBURIDE 5 MG TAB PO SCH (07:19)
[2017-03-23] MEDS: Hydrochlorothiazide 25 MG TAB PO SCH (08:27)
[2017-03-23] MEDS: Prazosin HCl 1 MG CAP PO SCH (08:27)
[2017-03-23] MEDS: Colchicine 0.6 MG TAB PO SCH (08:27)
[2017-03-23] MEDS: Aspirin 81 mg Enteric Coated Tablet PO SCH (08:28)
[2017-03-23] MEDS: Lisinopril 10 MG TAB PO SCH ×2 (08:28→21:02)
[2017-03-23] MEDS: Potassium Chloride 20 MEQ TAB PO SCH (08:28)
[2017-03-23] MEDS: Atorvastatin Calcium 10 MG TAB PO SCH (08:29)
[2017-03-23] MEDS: metFORMIN 500 MG TAB PO SCH (08:29)
[2017-03-23] MEDS: Dorzolamide HCl 2% Ophth Soln 10 ml Bottle EA EYE SCH ×2 (08:29→20:51)
[2017-03-23] MEDS: Donepezil HCl 10 MG TAB PO SCH (20:50)
[2017-03-23] MEDS: Mirtazapine 15 MG TAB PO SCH (20:57)
[2017-03-23] MEDS: Acetaminophen 325 MG TAB PO PRN (21:07)
[2017-03-24] MEDS: glyBURIDE 5 MG TAB PO SCH (08:05)
[2017-03-24] MEDS: Prazosin HCl 1 MG CAP PO SCH (08:40)
[2017-03-24] MEDS: Atorvastatin Calcium 10 MG TAB PO SCH (08:40)
[2017-03-24] MEDS: metFORMIN 500 MG TAB PO SCH (08:40)
[2017-03-24] MEDS: Hydrochlorothiazide 25 MG TAB PO SCH (08:40)
[2017-03-24] MEDS: Potassium Chloride 20 MEQ TAB PO SCH (08:41)
[2017-03-24] MEDS: Aspirin 81 mg Enteric Coated Tablet PO SCH (08:41)
[2017-03-24] MEDS: Colchicine 0.6 MG TAB PO SCH (08:41)
[2017-03-24] MEDS: Lisinopril 10 MG TAB PO SCH ×2 (08:41→20:41)
[2017-03-24] MEDS: Dorzolamide HCl 2% Ophth Soln 10 ml Bottle EA EYE SCH ×2 (08:45→20:40)
[2017-03-24] MEDS: Donepezil HCl 10 MG TAB PO SCH (20:40)
[2017-03-24] MEDS: Mirtazapine 15 MG TAB PO SCH (20:41)
[2017-03-24] MEDS: Acetaminophen 325 MG TAB PO PRN (20:42)
[2017-03-25] MEDS: Prazosin HCl 1 MG CAP PO SCH (07:43)
[2017-03-25] MEDS: Lisinopril 10 MG TAB PO SCH ×2 (07:44→20:34)
[2017-03-25] MEDS: glyBURIDE 5 MG TAB PO SCH (07:45)
[2017-03-25] MEDS: Hydrochlorothiazide 25 MG TAB PO SCH (07:45)
[2017-03-25] MEDS: Atorvastatin Calcium 10 MG TAB PO SCH (08:36)
[2017-03-25] MEDS: Potassium Chloride 20 MEQ TAB PO SCH (08:36)
[2017-03-25] MEDS: metFORMIN 500 MG TAB PO SCH (08:36)
[2017-03-25] MEDS: Aspirin 81 mg Enteric Coated Tablet PO SCH (08:36)
[2017-03-25] MEDS: Colchicine 0.6 MG TAB PO SCH (08:36)
[2017-03-25] MEDS: Dorzolamide HCl 2% Ophth Soln 10 ml Bottle EA EYE SCH ×2 (08:37→20:26)
[2017-03-25] MEDS: Mirtazapine 15 MG TAB PO SCH (20:27)
[2017-03-25] MEDS: Donepezil HCl 10 MG TAB PO SCH (20:27)
[2017-03-25] MEDS: clonazePAM 0.5 MG TAB PO PRN (20:32)
[2017-03-26] MEDS: glyBURIDE 5 MG TAB PO SCH (08:21)
[2017-03-26] MEDS: Aspirin 81 mg Enteric Coated Tablet PO SCH (08:22)
[2017-03-26] MEDS: Prazosin HCl 1 MG CAP PO SCH (08:22)
[2017-03-26] MEDS: metFORMIN 500 MG TAB PO SCH (08:22)
[2017-03-26] MEDS: Atorvastatin Calcium 10 MG TAB PO SCH (08:22)
[2017-03-26] MEDS: Hydrochlorothiazide 25 MG TAB PO SCH (08:22)
[2017-03-26] MEDS: Potassium Chloride 20 MEQ TAB PO SCH (08:23)
[2017-03-26] MEDS: Lisinopril 10 MG TAB PO SCH ×2 (08:23→20:13)
[2017-03-26] MEDS: Colchicine 0.6 MG TAB PO SCH (08:23)
[2017-03-26] MEDS: Dorzolamide HCl 2% Ophth Soln 10 ml Bottle EA EYE SCH ×2 (08:23→20:14)
[2017-03-26] MEDS: Donepezil HCl 10 MG TAB PO SCH (20:13)
[2017-03-26] MEDS: Mirtazapine 15 MG TAB PO SCH (20:13)
[2017-03-27] MEDS: glyBURIDE 5 MG TAB PO SCH (07:39)
[2017-03-27] MEDS: Colchicine 0.6 MG TAB PO SCH (08:31)
[2017-03-27] MEDS: metFORMIN 500 MG TAB PO SCH (08:31)
[2017-03-27] MEDS: Hydrochlorothiazide 25 MG TAB PO SCH (08:31)
[2017-03-27] MEDS: Prazosin HCl 1 MG CAP PO SCH (08:31)
[2017-03-27] MEDS: Potassium Chloride 20 MEQ TAB PO SCH (08:32)
[2017-03-27] MEDS: Atorvastatin Calcium 10 MG TAB PO SCH (08:33)
[2017-03-27] MEDS: Aspirin 81 mg Enteric Coated Tablet PO SCH (08:33)
[2017-03-27] MEDS: Lisinopril 10 MG TAB PO SCH (08:33)
[2017-03-27] MEDS: Dorzolamide HCl 2% Ophth Soln 10 ml Bottle EA EYE SCH (08:34)
[2017-03-27 09:03] VITALS: BP 198/93; TEMP 97.5
--- NOTE | 2017-03-28 02:48 | DIS ---
DATE OF ADMISSION: 03/08/2017 DATE OF DISCHARGE: 03/27/2017 ADMITTING AND DISCHARGING PHYSICIAN: Jenni Yuan MD FINAL DIAGNOSES: 1. Physical deconditioning. 2. Advanced dementia. 3. Hypertension. 4. Bradycardia. 5. Gout. 6. Type 2 diabetes. 7. Hyperlipidemia. 8. Benign prostatic hyperplasia. DISCHARGE MEDICATIONS: Aspirin 81 mg daily, Lipitor 40 daily, colchicine 0.6 daily, Aricept 10 mg at bedtime, glyburide 5 mg daily, hydrochlorothiazide 25 daily, lisinopril 20 mg b.i.d., Namenda 10 mg daily, metformin 500 mg daily, metoprolol 50 mg b.i.d., potassium chloride 20 mEq daily, and prazosin 1 mg p.o. daily. DISCHARGE INSTRUCTIONS: 1. Follow up with PCP in 1 week. 2. Patient needs 24 hours 7 days a week supervision. 3. Fall precautions. BRIEF HOSPITAL COURSE: Mr. Arriaga is a 77-year-old -[place] male who is very well known to me, patient was admitted in [place] in [place], 03/05 to due to altered mental status and generalized weakness. Patient does have a history of mild dementia, which has progressively worsened. Initially, he was thought to be septic, but later was found to have an of acute gout. Patient was transferred to [facility] for physical therapy prior to discharge to possibly a long-term facility as his dementia now worsened and son unable to take care of him at home. During hospitalization, patient participated in physical therapy and progressively improved. He met a lot of his physical therapy goals. Patient's gout medications, we adjusted throughout hospitalization and patient denied any pain. Patient due to his advanced dementia, he is not able to live by himself and 17y/o son any longer. Family initially opted for senior care placement, but decided that they could not afford this, wanted patient to go to a [facility] in [place]. They were unable to get a facility for patient, so the decision was made to discharge patient home and patient's older brother, Mr. Anselmo Arriaga decided to be power of banking attorney and help with care of patient. Mr. Anselmo Arriaga states patient will be taken care of in his home with his son living there, his niece and nephew who would assist in taking care of patient. Patient was discharged home in the care of family members in a stable condition. They were notified patient should never be left alone by himself due to him being a danger to himself and others due to his advanced dementia. Patient discharged home on 03/27 in a stable condition. Discharge vitals, 97.5, pulse 66, respirations 20, O2 sat 99%, blood pressure 197/92. MTDD
== END 2017-03-27 10:45 | disposition home or self-care (01) | DRG 554 ==
LOC: MADMS 16:46
PROVIDERS: ADMIT Family Medicine; ATTEND Family Medicine
DX: M10.9 Gout, unspecified (principal); N17.9 Acute kidney failure, unspecified; F03.90 Unspecified dementia, unspecified severity, without behavioral disturbance, psychotic disturbance, mood disturbance, and anxiety; R00.1 Bradycardia, unspecified; E11.9 Type 2 diabetes mellitus without complications; E78.5 Hyperlipidemia, unspecified; I12.9 Hypertensive chronic kidney disease with stage 1 through stage 4 chronic kidney disease, or unspecified chronic kidney disease; N18.9 Chronic kidney disease, unspecified; N40.0 Benign prostatic hyperplasia without lower urinary tract symptoms; N47.1 Phimosis; R26.9 Unspecified abnormalities of gait and mobility; R53.1 Weakness; R79.89 Other specified abnormal findings of blood chemistry; Z90.79 Acquired absence of other genital organ(s); Z88.8 Allergy status to other drugs, medicaments and biological substances; Z87.891 Personal history of nicotine dependence
CPT/HCPCS: 36416; G8978-GP-CL; G8979-GP-CJ; G8996-GN-CJ; G8997-GN-CJ

== ENCOUNTER 2017-04-07 09:40 | Emergency (ER) | payer MEDICARE ==
[2017-04-07 10:24] LABS: #Basophils 0.1 thou/uL (0.0-0.2); #Eosinphils 0.1 thou/uL (0.0-0.7); #Lymphocytes 1.3 thou/uL (1.20-3.40); #Monocytes 1.1 thou/uL (0.11-0.59); #Neutrophils 9.5 thou/uL (1.40-6.50); %Basophils 0.7 % (0.0-1.0); %Eosinophils 0.6 % (0.0-10.0); %Lymphocytes 10.8 % (21.0-51.0); %Monocytes 9.3 % (0.0-10.0); %Neutrophils 78.6 % (42.0-75.0); Hemoglobin 12.7 g/dL (14.0-18.0); Mean Corpuscular Hemoglobin 27.5 pg (27.0-31.0); Mean Corpuscular Volume 85.9 fl (80.0-94.0); Mean Platelet Volume 6.6 fL (7.4-10.4); Platelet Count 277 thou/uL (130-400); RBC Distribution Width 14.6 % (11.5-14.5); Red Blood Cell (RBC) Count 4.64 mill/uL (4.70-6.10); White Blood Cell (WBC) Count 12.1 thou/uL (4.8-10.8)
[2017-04-07] MEDS ORDERED: Ketorolac Tromethamine 30 MG/ML VIAL ONE (10:24)
[2017-04-07 10:40] LABS: ALT (SGPT) 15 U/L (8-55); AST (SGOT) 10 U/L (5-34); Alkaline Phosphatase 66 U/L (40-150); Anion Gap 15 mmol/L (10-20); BUN (Urea Nitrogen) 17 mg/dL (8.4-25.7); Bilirubin, Total 1.1 mg/dL (0.2-1.2); Calc. Creatinine Clearance 0 mL/min (70-130); Calcium 9.9 mg/dL (7.8-10.44); Carbon Dioxide 27 mmol/L (23-31); Chloride 101 mmol/L (98-107); Estimated GFR-MDRD 80; Globulin 3.6 g/dL (2.4-3.5); Glucose 118 mg/dL (83-110); Lipase 20 U/L (8-78); Potassium 3.2 mmol/L (3.5-5.1); Protein, Total 7.6 g/dL (5.8-8.1); Sodium 140 mmol/L (136-145); Uric Acid 6.6 mg/dL (3.5-7.2)
--- NOTE | 2017-04-07 10:53 | RAD ---
RIGHT FOOT THREE VIEWS: HISTORY: A 77-year-old male with right foot pain. COMPARISON: 02/01/2016 FINDINGS: There is minimal overexposure, particularly with attention to the toes. There are degenerative and osteoarthrosis changes of the foot and ankle with some prominent vascular calcifications. Mild gerber ux valgus deformity. No acute fracture or dislocation. IMPRESSION: Degenerative changes with some hallux valgus deformity and prominent vascular calcifications without acute fracture or dislocation, showing little change from prior study. POS: [facility]
[2017-04-07 12:30] LABS: Bilirubin Negative (Negative); Clarity Clear (Clear); Glucose, Urine (Dipstick) Negative (Negative); Leukocyte Negative (Negative); Nitrite Negative (Negative); Protein, Urine (Dipstick) 30 mg/dL (Neg-Trace); pH, Urine 5.5 (5.0-9.0)
[2017-04-07 12:31] LABS: Bacteria/HPF None Seen HPF (None Seen); Blood, Urine Negative (Negative); Other Microscopic Description 1+ MUCUS; RBC/HPF None Seen HPF (0-3); Squamous Epithelial 0-3 HPF (0-3); WBC/HPF None Seen HPF (0-3)
--- NOTE | 2017-04-07 13:52 | CT ---
CT ABDOMEN AND PELVIS WITHOUT IV CONTRAST: Indication: Abdominal pain with a history of colitis. Comparison: 08-18-16 FINDINGS: There is a 4.8 mm stone within the right mid kidney which is stable. There is a 3.4 cm cyst involvin g the inferior pole of the right kidney which is stable. No hydronephrosis is evident. Adrenal gland s, pancreas, and spleen appear within normal limits. Unopacified liver does not appear appreciably c hanged. There is a moderate amount of retained stool within the colon. There is surgical changes of a partia l colectomy which is stable. Small bowel is of normal caliber. There is advanced atherosclerotic dis ease of the abdominal pelvic vasculature. There is scattered degenerative and osteoarthritic change. No definite acute osseous abnormality is evident. Small suspected fibrous osseous lesion is seen within the anterior aspect of the right acet abulum. IMPRESSION: No acute abnormality. Stable exam as above. POS: [facility]
== END 2017-04-07 13:00 | disposition home or self-care (01) ==
LOC: MADERS 09:40
DX: M10.9 Gout, unspecified (principal); K29.70 Gastritis, unspecified, without bleeding; I10 Essential (primary) hypertension; F41.9 Anxiety disorder, unspecified; F02.80 Dementia in other diseases classified elsewhere, unspecified severity, without behavioral disturbance, psychotic disturbance, mood disturbance, and anxiety; G30.9 Alzheimer's disease, unspecified; E11.9 Type 2 diabetes mellitus without complications; Z79.82 Long term (current) use of aspirin; Z79.84 Long term (current) use of oral hypoglycemic drugs; Z79.899 Other long term (current) drug therapy; Z87.891 Personal history of nicotine dependence
CPT/HCPCS: 36415; 74176; 80053; 81003; 81015; 83690; 84550; 85025; 96372; J1885

== ENCOUNTER 2020-06-25 18:17 | Emergency (ER) | payer MEDICARE, MEDICAID ==
[~2020-06-25 18:17] MED LIST changes: +Sodium Chloride 0.9% 500 ML BAG ONE
[2020-06-25 19:00] LABS: #Basophils 0.1 thou/uL (0.0-0.2); #Lymphocytes 1.5 thou/uL (1.20-3.40); #Monocytes 1.2 thou/uL (0.11-0.59); %Basophils 0.7 % (0.0-1.0); %Eosinophils 0.1 % (0.0-10.0); %Lymphocytes 7.6 % (21.0-51.0); %Neutrophils 85.6 % (42.0-75.0); Hemoglobin 13.2 g/dL (14.0-18.0); Mean Corpuscular HGB CONC 31.2 g/dL (32.0-36.0); Mean Corpuscular Hemoglobin 26.1 pg (27.0-31.0); Mean Corpuscular Volume 83.6 fL (78.0-98.0); Mean Platelet Volume 7.5 fL (7.4-10.4); Platelet Count 251 thou/uL (130-400); RBC Distribution Width 14.4 % (11.5-14.5); Red Blood Cell (RBC) Count 5.05 mill/uL (4.70-6.10); White Blood Cell (WBC) Count 19.9 thou/uL (4.8-10.8)
[2020-06-25 19:14] LABS: ALT (SGPT) 21 U/L (8-55); AST (SGOT) 13 U/L (5-34); Albumin 3.7 g/dL (3.4-4.8); Alkaline Phosphatase 80 U/L (40-110); Anion Gap 16 mmol/L (10-20); BUN (Urea Nitrogen) 28 mg/dL (8.4-25.7); Bilirubin, Total 0.3 mg/dL (0.2-1.2); CK (CPK) 122 U/L (30-200); Calc. Creatinine Clearance 0 mL/min (70-130); Calcium 9.5 mg/dL (7.8-10.44); Carbon Dioxide 24 mmol/L (23-31); Chloride 109 mmol/L (98-107); Globulin 3.2 g/dL (2.4-3.5); Glucose 127 mg/dL (83-110); Protein, Total 6.9 g/dL (5.8-8.1); Sodium 144 mmol/L (136-145)
--- NOTE | 2020-06-25 19:16 | RAD ---
PORTABLE CHEST: 06/25/20 HISTORY: Dyspnea. COMPARISON: 03/05/17 study. Heart size is borderline. There are atherosclerotic changes of the aorta. Lungs appear clear of any d efinitive infiltrative process. IMPRESSION: Borderline heart size. POS: [facility]
[2020-06-25 19:28] LABS: PTT 29.6 sec (22.9-36.1)
[2020-06-25 19:29] LABS: Prothrombin Time 13.5 sec (12.0-14.7)
[2020-06-25 19:30] LABS: D-Dimer Test 0.55 *mcg/mL (0.27-0.43)
[2020-06-25] MEDS ORDERED: Sodium Chloride 0.9% 100 ML ONE (19:32)
[2020-06-25] MEDS ORDERED: Cefepime 2 GM VIAL ONE (19:32)
[2020-06-25 19:46] LABS: Bilirubin Negative (Negative); Blood, Urine Large (Negative); Glucose, Urine (Dipstick) Negative (Negative); Ketone, Urine Negative (Negative); Leukocyte Trace (Negative); Nitrite Negative (Negative); Protein, Urine (Dipstick) 30 mg/dL (Neg-Trace); Urobilinogen 0.2 mg/dL (Less than 2); pH, Urine 5.5 (5.0-9.0)
[2020-06-25 19:58] LABS: Bacteria/HPF 3+ HPF (None Seen); Clarity Hazy (Clear); RBC/HPF 21-50 HPF (0-3)
[2020-06-25 20:00] LABS: SARS-CoV-2 NAA Rapid Test Not Detected (NotDetected)
== END 2020-06-25 22:34 | disposition short-term general hospital (02) ==
LOC: MADERS 18:17
DX: R41.82 Altered mental status, unspecified (principal); E86.0 Dehydration; F03.90 Unspecified dementia, unspecified severity, without behavioral disturbance, psychotic disturbance, mood disturbance, and anxiety; M10.9 Gout, unspecified; E11.9 Type 2 diabetes mellitus without complications; I10 Essential (primary) hypertension; E78.00 Pure hypercholesterolemia, unspecified; Z87.891 Personal history of nicotine dependence; Z79.899 Other long term (current) drug therapy
CPT/HCPCS: 0240U; 36415; 51701; 71045; 80053; 81003; 81015; 82550; 83605; 83880; 84484; 85025; 85379; 85610; 85730; 87040; 87077; 87086; 87149; 87186; 93005; 96365; 96366; 96367; J0692; J1956; J3370; J3490; J7030; J7050

== ENCOUNTER 2020-07-19 08:56 | Emergency (ER) | payer MEDICARE, OTHER ==
[2020-07-19] MEDS ORDERED: Dextrose 50% Abboject 50 ML SYRINGE ONE (09:27)
[2020-07-19] MEDS ORDERED: Dextrose 5 % And 0.9 % NaCl 1,000 ML ONE (09:39)
[2020-07-19 10:04] LABS: #Eosinphils 0.1 thou/uL (0.0-0.7); #Lymphocytes 1.4 thou/uL (1.20-3.40); #Monocytes 0.7 thou/uL (0.11-0.59); #Neutrophils 12.3 thou/uL (1.40-6.50); %Basophils 0.2 % (0.0-1.0); %Eosinophils 0.5 % (0.0-10.0); %Lymphocytes 9.7 % (21.0-51.0); %Monocytes 4.5 % (0.0-10.0); %Neutrophils 85.1 % (42.0-75.0); Mean Corpuscular HGB CONC 29.6 g/dL (32.0-36.0); Mean Corpuscular Hemoglobin 25.8 pg (27.0-31.0); Mean Platelet Volume 8.3 fL (7.4-10.4); Platelet Count 211 thou/uL (130-400); RBC Distribution Width 15.5 % (11.5-14.5); Red Blood Cell (RBC) Count 5.02 mill/uL (4.70-6.10); White Blood Cell (WBC) Count 14.4 thou/uL (4.8-10.8)
--- NOTE | 2020-07-19 10:20 | RAD ---
Exam: Chest one view HISTORY:Dyspnea Comparison: 06/25/2020 FINDINGS: Cardiac silhouette: Normal Aorta: Atherosclerosis Pulmonary vessels: Normal Costophrenic angles: Clear LUNGS: No masses or consolidation. Pneumothorax: None Osseous abnormalities: None IMPRESSION: No acute cardiopulmonary process. Atherosclerosis
[2020-07-19 10:32] LABS: ALT (SGPT) 70 U/L (8-55); AST (SGOT) 50 U/L (5-34); Albumin 3.1 g/dL (3.4-4.8); Alkaline Phosphatase 79 U/L (40-110); Bilirubin, Total 0.5 mg/dL (0.2-1.2); CK (CPK) 1128 U/L (30-200); Calc. Creatinine Clearance 0 mL/min (70-130); Calcium 8.6 mg/dL (7.8-10.44); Carbon Dioxide 14 mmol/L (23-31); Globulin 3.2 g/dL (2.4-3.5); Glucose 442 mg/dL (83-110); Potassium 4.7 mmol/L (3.5-5.1); Protein, Total 6.3 g/dL (5.8-8.1); Sodium Greater than 175 mmol/L (136-145)
[2020-07-19 10:35] LABS: Chloride Greater than 145 mmol/L (98-107)
[2020-07-19] MEDS ORDERED: Sodium Chloride 0.9% 100 ML ONE (10:37)
[2020-07-19] MEDS ORDERED: Cefepime 2 GM VIAL ONE (10:37)
[2020-07-19 10:44] LABS: Bilirubin Small (Negative); Blood, Urine Large (Negative); Glucose, Urine (Dipstick) >=1000 mg/dL (Negative); Ketone, Urine Trace mg/dL (Negative); Leukocyte Negative (Negative); Nitrite Negative (Negative); Protein, Urine (Dipstick) 30 mg/dL (Neg-Trace); Specific Gravity, Urine 1.025 (1.005-1.030); Urobilinogen 0.2 mg/dL (Less than 2)
[2020-07-19 10:46] LABS: Clarity Hazy (Clear)
[2020-07-19 10:52] LABS: BUN (Urea Nitrogen) 150 mg/dL (8.4-25.7)
[2020-07-19 10:54] LABS: Bacteria/HPF Rare-Few HPF (None Seen); Mucous/LPF 1+ LPF (<2+); Squamous Epithelial 0-3 HPF (0-3); WBC/HPF None Seen HPF (0-3)
[2020-07-19 11:34] LABS: ALT (SGPT) 66 U/L (8-55); AST (SGOT) 45 U/L (5-34); Albumin 2.9 g/dL (3.4-4.8); Alkaline Phosphatase 77 U/L (40-110); Bilirubin, Total 0.5 mg/dL (0.2-1.2); Calc. Creatinine Clearance 0 mL/min (70-130); Calcium 8.3 mg/dL (7.8-10.44); Carbon Dioxide 12 mmol/L (23-31); Globulin 3.1 g/dL (2.4-3.5); Glucose 555 mg/dL (83-110); Potassium 4.7 mmol/L (3.5-5.1); Sodium Greater than 175 mmol/L (136-145)
[2020-07-19 11:36] LABS: BUN (Urea Nitrogen) 150 mg/dL (8.4-25.7); Chloride Greater than 145 mmol/L (98-107)
[2020-07-19] MEDS ORDERED: Sodium Chloride 0.9% 1,000 ML ONE (12:14)
[2020-07-19] MEDS ORDERED: Vancomycin 1.5 GRAM/300 ML BAG ONE (12:14)
[2020-07-19 13:21] LABS: Glucose 549 mg/dL (83-110)
[2020-07-19] MEDS ORDERED: Insulin Regular 300 UNITS/3 ML VIAL ONE (15:09)
== END 2020-07-19 15:41 | disposition short-term general hospital (02) ==
LOC: MADERS 08:56
DX: A41.9 Sepsis, unspecified organism (principal); E11.10 Type 2 diabetes mellitus with ketoacidosis without coma; E87.0 Hyperosmolality and hypernatremia; E86.0 Dehydration; I10 Essential (primary) hypertension; M10.9 Gout, unspecified; E78.00 Pure hypercholesterolemia, unspecified; Z87.891 Personal history of nicotine dependence
CPT/HCPCS: 36415; 36416; 71045; 80053; 81003; 81015; 82550; 84443; 85025; 87040; 87086; 96361; 96365; 96367; 96375; J0692; J1815; J3370; J3490; J7042; J7050